=== PATIENT | female | born 1940 | race Caucasian/White ===

== ENCOUNTER 2016-10-18 21:20 | Emergency (ER) | payer MEDICARE, BC ==
[2016-10-18 23:49] LABS: BASOPHILS 0.2 % (0-2); EOSINOPHILS 1.2 % (0-7); HEMATOCRIT 44.5 % (36.0-48.0); HEMOGLOBIN 14.8 g/dL (12-16); IMMATURE GRANULOCYTES 0.3 % (0-5); MCH 30.6 pg (26.0-34.0); MCHC 33.3 g/dL (31.0-37.0); MCV 92.1 fL (80.0-100.0); MONOCYTES 10.7 % (2-11); NEUTROPHILS 71.6 % (40-80); PLATELET COUNT 225 10x3/uL (130-400); RBC 4.83 10x6/uL (4.00-5.40); RDW 13.3 % (11.5-14.5); WBC 9.7 10x3/uL (4.8-10.8)
[2016-10-19 00:03] LABS: ALBUMIN 3.9 g/dL (3.4-5.0); ALKALINE PHOSPHATASE 91 U/L (46-116); ALT (SGPT) 46 U/L (10-68); BILIRUBIN - TOTAL 0.42 mg/dL (0.2-1.3); CALC OSMOLALITY 282 mosm/kg (275-300); CALCIUM 9.8 mg/dL (8.5-10.1); CARBON DIOXIDE 26.7 mmol/L (21.0-32.0); CHLORIDE - SERUM 105 mmol/L (98-107); CREATININE - SERUM 0.9 mg/dL (0.6-1.3); GLUCOSE 97 mg/dL (74-106); PROTEIN - SERUM 7.9 g/dL (6.4-8.2); SODIUM 140 mmol/L (136-145); UREA NITROGEN 24 mg/dL (7-18); eGFR NON AFRICAN AMERICAN 64 mL/min (90-120)
[2016-10-19 00:09] LABS: C-REACTIVE PROTEIN 1.4 mg/dL (0.0-0.9); CREATINE KINASE 97 UL (21-215); PRO BNP 115 pg/mL (0-450)
[2016-10-19 00:14] LABS: TROPONIN-I < 0.017 ng/mL (0.000-0.060)
[2016-10-19 00:15] LABS: POTASSIUM - SERUM 5.2 mmol/L (3.5-5.1)
== END 2016-10-19 01:55 | disposition home or self-care (01) ==
LOC: D.ER 21:20
PROVIDERS: Family Medicine
DX: M94.0 Chondrocostal junction syndrome [Tietze] (principal); M32.9 Systemic lupus erythematosus, unspecified; I49.3 Ventricular premature depolarization

== ENCOUNTER → 2018-03-21 12:36 | Outpatient (CLI) | payer MEDICARE, BC | END | disposition home or self-care (01) | LOC: D.MRI 12:36 | DX: M25.511 Pain in right shoulder (principal) ==

== ENCOUNTER → 2018-05-19 08:41 | Outpatient (CLI) | payer MEDICARE, BC | END | disposition home or self-care (01) | LOC: D.CT 08:41 | DX: N28.1 Cyst of kidney, acquired (principal) ==

== ENCOUNTER → 2018-11-20 10:33 | Outpatient (CLI) | payer MEDICARE, BC | END | disposition home or self-care (01) | LOC: D.NM 10:15 | PROVIDERS: ATTEND Family Medicine | DX: E21.0 Primary hyperparathyroidism (principal) ==